=== PATIENT | female | born 1970 | race Caucasian/White ===

== ENCOUNTER 2016-10-13 16:42 | Emergency (ER) | payer SELFPAY ==
[~2016-10-13] VITALS: Ht 165.1 cm; Wt 60.0 kg
[~2016-10-13 16:42] MED LIST: MACR100C PO; MULTCAP13 PO; NORT10CA PO; VITA250T5 PO
[2016-10-13 16:44] VITALS: BP 179/85; PULSE 75; RESP 16; TEMP 97.8; O2SAT 96
--- NOTE | 2016-10-13 17:12 | PD ---
HPI Chief Complaint: Injury Time Seen by Provider: 17:11 Travel History International Travel<30 days: No Contact w/Intl Traveler<30days: No Traveled to known affect area: No History of Present Illness HPI 45 year-old female presents to emergency department for evaluation of right shoulder pain. Patient states that yesterday while working she began to have pain in her back. 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 She states this morning when she woke up her right shoulder felt "frozen. " She states it hurts along the superior aspect of the right shoulder when she lifts her arm. Denies any injury. Denies any alterations in sensation. She reports no recent illnesses, fever, or chills. She has no other symptoms to report. [facility]LY [facility] Past Medical History Medical History: Denies Significant Hx Hypertension: Yes ?: Not : 5 Para: 3 Miscarriage: 2 Social History Alcohol Use: Yes Tobacco Use: Yes Substance Use: No Allergies-Medications (Allergen,Severity, Reaction): Coded Allergies: No Known Allergies (Verified , 10/13/16) Reported Meds & Prescriptions Reported Meds & Active Scripts Active Mobic (Meloxicam) 15 Mg Tab 15 Mg PO DAILY PRN Robaxin (Methocarbamol) 500 Mg Tab 500 Mg PO QID PRN Review of Systems Except as stated in HPI: all other systems reviewed are Neg Physical Exam Narrative GENERAL: Well-nourished female patient, ambulatory and in no acute distress SKIN: Warm and dry. HEAD: Atraumatic. Normocephalic. EYES: Pupils equal and round. No scleral icterus. No injection or drainage. ENT: No nasal bleeding or discharge. Mucous membranes pink and moist. NECK: Trachea midline. No JVD. No cervical spine tenderness. No limitations of range of motion of the cervical spine. CARDIOVASCULAR: Regular rate and rhythm. No murmur appreciated. RESPIRATORY: No accessory muscle use. Clear to auscultation. Breath sounds equal bilaterally. GASTROINTESTINAL: Abdomen soft, non-tender, nondistended. Hepatic and splenic margins not palpable. MUSCULOSKELETAL: No obvious deformities. No clubbing. No cyanosis. No edema. Patient does have tenderness elicited palpation along the right trapezius musculature. Pain is elicited with abduction greater than 45. Patient does have equal strength bilateral extremities. NEUROLOGICAL: Awake and alert. No obvious cranial nerve deficits. Motor grossly within normal limits. Normal speech. PSYCHIATRIC: Appropriate mood and affect; insight and judgment normal. Data Data Last Documented VS Vital Signs Date Time Temp Pulse Resp B/P Pulse Ox O2 Delivery O2 Flow Rate FiO2 10/13/16 16:44 97.8 75 16 179/85 96 Room Air Orders Ketorolac Inj (Toradol Inj) (10/13/16 17:15) Orphenadrine Inj (Norflex Inj) (10/13/16 17:15) Splint Or Brace Apply/Monitor (10/13/16 17:12) MDM Medical Decision Making Medical Screen Exam Complete: Yes Emergency Medical Condition: Yes Medical Record Reviewed: Yes Differential Diagnosis Shoulder sprain versus frozen shoulder versus muscle spasm versus cervical radiculopathy Narrative Course 45 year-old female presents to the emergency department for evaluation of right shoulder pain. Patient's pain is more in the right trapezius musculature and exacerbated with abduction. Distal pulses are palpable. There is no edema or ulcerations in sensation in the distal affected extremity. This could very well be a cervical radiculopathy and I have advised the patient to follow-up with her primary care provider for further outpatient evaluation if symptoms persist. Being that this is one day of symptoms, we will attempt muscle relaxants and anti-inflammatories. I have reviewed range of motion exercises with her. She agrees to return immediately with any acute worsening symptoms. Diagnosis Primary Impression: Right shoulder pain Qualified Code: M25.511 - Acute pain of right shoulder Referrals: Orthopaedic Surgeon Primary Care Physician Patient Instructions: General Instructions, Shoulder Pain (ED) Departure Forms: Tests/Procedures, Work Release Enter return to work date: Oct 16, 2016 Additional Instructions: Ice and/or warm moist heat may help to alleviate symptoms Continue shoulder exercises as we discussed Follow up with your PCP - outpt MRI of your cervical spine may be warranted Seek orthopedic evaluation if symptoms persist Return immediately to the ED for any acute worsening of symptoms Med/Other Pt SpecificInfo: Prescription(s) given Scripts Meloxicam (Mobic)15 Mg Tab15 Mg PO DAILY PRN (PAIN SCALE 1 TO 10) #15 TAB Ref 0 Prov:Dominique Medrano 10/13/16 Methocarbamol (Robaxin)500 Mg [id number] Mg PO QID PRN (MUSCLE SPASM) #20 TAB Ref 0 Prov:Dominique Medrano 10/13/16 Disposition: 01 DISCHARGE HOME Condition: Stable Dominique Medrano Oct 13, 2016 17:11
[2016-10-13] MEDS ORDERED: KETOROLAC TROMETHAMINE 60 MG/2 ML (IM) VIAL IM ONE (17:15)
[2016-10-13] MEDS ORDERED: ORPHENADRINE INJ 60 MG/2 ML AMP IM ONE (17:15)
[2016-10-13] MEDS ORDERED: ROBA500T PO (17:16)
[2016-10-13] MEDS ORDERED: MOBI15TA PO (17:16)
== END 2016-10-13 18:27 | disposition home or self-care (01) ==
LOC: NEPB 16:42
DX: M25.511 Pain in right shoulder (principal); Z72.0 Tobacco use; X50.0XXA Overexertion from strenuous movement or load, initial encounter; Y99.0 Civilian activity done for income or pay
CPT/HCPCS: 96372; 99283; J1885; J2360